=== PATIENT | female | born 1955 | race Caucasian/White ===

== ENCOUNTER 2018-11-11 05:13 | Inpatient (IN) | payer BC ==
[~2018-11-11] VITALS: Ht 165.1 cm; Wt 59.6 kg
[2018-11-11] VITALS (33 sets, daily range): BP systolic 84–131; BP diastolic 44–75; PULSE 83–122; RESP 12–23; Ht 165.1 cm; Wt 59.6 kg
[~2018-11-11 05:13] MED LIST: 7-OX5POW2 MC; AMOUR PO; BIOT1TAB3 PO; FEXO60TA20 PO; MODA200T35 ORAL; PROG100C15 ORAL; TAUR500C PO; TURM1CAP2 PO; VENL150C PO; VITA1CAP5 PO; [UNRECOGNIZED DRUG - CODE] MC; [UNRECOGNIZED DRUG - CODE] PO; [UNRECOGNIZED DRUG - CODE] PO
[2018-11-11] MEDS ORDERED: VANCOMYCIN 1 GM (PMX) 250 ML IVPB ONE (06:00)
[2018-11-11] MEDS ORDERED: LACTATED RINGER'S 1,000 ML IV SCH (06:30)
--- NOTE | 2018-11-11 06:38 | PREAC ---
Date/Time of Note Date/Time of Note DATE: 11/11/18 TIME: 06:38 Anesthesia Eval and Record Evaluation Time Pre-Procedure Interview DATE: 11/11/18 TIME: 06:38 Age 63 Sex female NPO: 8 hrs Preoperative diagnosis lumbar ddd Planned procedure L3-5 laminectomy Past Medical History Past Medical History: Includes Endo: Hypothyroid Surgery & Anesthesia Issues No known issue Meds Anticoagulation: No Beta Brando within 24 hr: No Reason Beta Brando not given: Pt. not on B-Brando Current Medications Vancomycin HCl 250 ml @ 125 mls/hr ONCE ONCE IVPB Last administered on 11/11/18at 06:28; Admin Dose 125 MLS/HR; Start 11/11/18 at 06:00; Stop 11/11/18 at 07:59 Lactated Ringer's 1,000 ml @ 30 mls/hr Q24H IV Last administered on 11/11/18at 06:28; Admin Dose 30 MLS/HR; Start 11/11/18 at 06:30 Meds reviewed: Yes Allergies Coded Allergies: Penicillins (Verified Allergy, Severe, 11/11/18) adhesive tape (Verified Allergy, Severe, 11/11/18) bupropion (Verified Allergy, Intermediate, 11/11/18) Allergies Reviewed: Yes Labs/Studies Labs Reviewed: Reviewed by anesthesiologist Blood Bank Test 11/11/18 05:52 Blood Product Summary Counts test: Negative Pre-procedure Exam Airway: Adequate mouth opening, Adequate thyromental dist Mallampati: Mallampati II Teeth: Normal Lung: Normal Heart: Normal ASA Physical Status ASA physical status: 2 Emergency: None Planned Anesthetic General/MAC: ETT Pre-operative Attestations Prior to commencing anesthesia and surgery, the patient was re-evaluated, there was verification of: *The patient's identity *The results of appropriate recent lab work and preoperative vital signs *The above evaluation not changing prior to induction *Anesthetic plan, risk benefits, alternative and complications discussed with patient/family; questions answered; patient/family understands, accepts and wishes to proceed. LORI GILBERT Nov 11, 2018 06:38
[2018-11-11] MEDS ORDERED: FENTAnyl 50 MCG/ML VIAL ONE ×2 (06:49→10:37)
--- NOTE | 2018-11-11 06:52 | HPN ---
Date/Time of Note Date/Time of Note DATE: 11/11/18 TIME: 06:51 Interval H&P Admission Note Pt. seen H&P reviewed: No system changes POP RODRIGUEZ MD Nov 11, 2018 06:52
[2018-11-11] MEDS ORDERED: ROCURONIUM 50 MG INJ ONE (06:59)
[2018-11-11] MEDS ORDERED: ONDANSETRON 4 MG INJ ONE ×2 (06:59→07:28)
[2018-11-11] MEDS ORDERED: SUCCINYLCHOLINE CHLORIDE 100 MG/5 ML SYG IV ONE (06:59)
[2018-11-11] MEDS ORDERED: METOCLOPRAMIDE 10 MG INJ ONE (06:59)
[2018-11-11] MEDS ORDERED: PROPOFOL 20 ML ONE (06:59)
[2018-11-11] MEDS ORDERED: DEXAMETHASONE 4 MG/ML 5 ML INJ ONE (06:59)
[2018-11-11] MEDS ORDERED: LIDOCAINE 100 MG SYRINGE ONE (06:59)
[2018-11-11] MEDS ORDERED: POLYMYXIN/BACITRACIN 1L IRRIG ONE (07:09)
[2018-11-11] MEDS ORDERED: THROMBIN 5000 UNIT (RECOTHROM) VIAL ONE (07:09)
[2018-11-11] MEDS ORDERED: BUPIVACAINE 0.25% (MPF) 30 ML INJ ONE (07:09)
[2018-11-11] MEDS ORDERED: GELATIN SIZE 100 SPONGE ONE (07:10)
[2018-11-11] MEDS ORDERED: SUGAMMADEX SODIUM 200 MG/2 ML VIAL IV ONE (09:49)
[2018-11-11] MEDS ORDERED: TRIMETHOBENZAMIDE 100 MG/ML VIAL IM PRN (10:30)
[2018-11-11] MEDS ORDERED: ONDANSETRON 4 MG INJ IV PRN ×2 (10:30→11:00)
[2018-11-11] MEDS ORDERED: NALOXONE (0.4 MG/ML) INJ IV PRN (10:30)
[2018-11-11] MEDS ORDERED: NACL 0.9% 3 ML SYG IV SCH (10:30)
[2018-11-11] MEDS ORDERED: ZOLPIDEM 5 MG TAB PO PRN (10:30)
[2018-11-11] MEDS ORDERED: AL HYDROX/MG HYDROX/SIMETH 30 ML CUP PO PRN (10:30)
[2018-11-11] MEDS ORDERED: DIAZEPAM 5 MG TAB PO PRN (10:30)
[2018-11-11] MEDS ORDERED: HYDROmorphONE 0.2 MG/ML PCA IV SCH (10:30)
[2018-11-11] MEDS ORDERED: DIAZEPAM 5 MG/ML SYG IM PRN (10:30)
[2018-11-11] MEDS ORDERED: BETHANECHOL 25 MG TAB PO PRN (10:30)
[2018-11-11] MEDS ORDERED: ACETAMINOPHEN 325 MG TAB PO PRN (10:30)
[2018-11-11] MEDS ORDERED: CEPASTAT LOZENGE MT PRN (10:30)
[2018-11-11] MEDS ORDERED: PROCHLORPERAZINE 10 MG TAB PO PRN (10:30)
[2018-11-11] MEDS ORDERED: HYDROmorphONE 1 MG/5 ML IV SYRINGE IV ONE (10:37)
[2018-11-11] MEDS ORDERED: HYDROmorphONE 0.2 MG/ML PCA ONE (10:44)
--- NOTE | 2018-11-11 10:46 | SIPON ---
Date/Time of Note Date/Time of Note DATE: 11/11/18 TIME: 10:39 Operative Report Preoperative Diagnosis Spinal Stenosis L4 and L5 HNP L5-S1 right Postoperative Diagnosis Same Operation/Procedure Performed Central decompressive laminectomy at L4 Central decompressive laminectomy at L5 Microdiscectomy L5-S1 on the right Medial facetectomy and foraminotomy L4-5 and L5-S1 bilaterally Baxano trans-pedicular foraminal decompression L5 on the right Cosmetic wound closure (6 cm) Lateral localizing lumbar radiographs (2) Intraoperative nerve monitoring (3 hours) Surgeon see signature line bacteriology research assistant BRENDA Maza Anesthesia: general Estimated blood loss: 250 - 300 ml's Transfusion Required none Specimen Herniated disc L5-S1 on the right Spinous process of L4 and L5 Grafts/Implants none Complications none POP RODRIGUEZ MD Nov 11, 2018 10:46
[2018-11-11] MEDS ORDERED: HYDROmorphONE 1 MG/5 ML IV SYRINGE IV PRN ×2 (11:00)
[2018-11-11] MEDS ORDERED: FENTAnyl 50 MCG/ML VIAL IV PRN ×2 (11:00)
[2018-11-11] MEDS ORDERED: PHENYLephrine (100 MCG/ML) 10ML SYG ONE (11:41)
--- NOTE | 2018-11-11 13:16 | OPR ---
DATE OF OPERATION: 11/11/2018 PREOPERATIVE DIAGNOSES: 1. Lumbar spinal stenosis at L4. 2. Lumbar spinal stenosis at L5. 3. Herniated disk, L5-S1 on the right with extruded fragments. POSTOPERATIVE DIAGNOSES: 1. Lumbar spinal stenosis at L4. 2. Lumbar spinal stenosis at L5. 3. Herniated disk, L5-S1 on the right with extruded fragments. OPERATION PERFORMED: 1. Central decompressive laminectomy at L4. 2. Central decompressive laminectomy at L5. 3. Microdiskectomy, L5-S1 on the right. 4. Baxano transpedicular foraminal decompression L5 on the right. 5. Medial facetectomy and foraminotomy, L4-L5 and L5-S1 bilaterally. 6. Cosmetic wound closure (6 cm). 7. Lateral localized lumbar radiographs (2) 8. Intraoperative nerve monitoring (3 hours). SURGEON: Mani Patricio MD EGG TESTER: BRENDA Maza ANESTHESIA: General endotracheal. ANESTHESIOLOGIST: Crow Tran MD ESTIMATED BLOOD LOSS: 300 mL, none replaced. DRAINS: Two medium Hemovac drains employed. COMPLICATIONS: None. PERTINENT HISTORY AND PHYSICAL: This is a 63-year-old female with severe back and bilateral leg pain , left greater than right, which have been unrelieved by extensive conservative management. She has undergone a number of diagnostic studies including an MRI of the lumbar spine, which demonstrated lum bar spinal stenosis at L4 and L5 with a right-sided disk extrusion at L5-S1. Treatment options discu ssed with the patient, she elected to proceed with surgery. OPERATIVE FINDINGS AT SURGERY: Severe stenosis at L4, moderate stenosis at L5 and a moderate paracen tral herniation of the L5-S1 disk was confirmed along with marked foraminal stenosis at L5-S1 on the right. Baseline intraoperative nerve monitoring revealed a decrease in the L4 potential on the left of 30%, the L4 potential on the right, 40%, the L5 potential on the left of 30%, the L5 potential on the right down 50%, the S1 potentials were down 50% bilaterally. These all returned to normal at the completion of surgery. OPERATIVE PROCEDURE: With the patient in supine position after satisfactory induction of general end otracheal anesthesia by Dr. Tran, the patient was turned to the prone kneeling position over the [place] frame. All pressure points were carefully padded. The back was prepped and draped in usua l sterile fashion. Athrombic pumps were applied to the legs below the knees to prevent venous stasis during and after procedure. An indwelling Hearn catheter was also placed preoperative to facilitate bladder drainage during and after procedure. Two spinal needles placed next to what was felt to be the L4 and L5 spinous processes, this was confirmed with lateral x-ray. A 6 cm incision then carried midline from L4 to the sacrum through skin and subcutaneous tissue to de ep fascia after skin was infiltrated with 0.25% Marcaine without epinephrine for postoperative analge justice. Superficial retractors were placed and hemostasis secured with electrocautery. Throughout the procedure, copious amounts of antibacterial irrigating solution used to periodically irrigate the wou nd. The fascia was incised in midline with a hot knife and a bilateral subperiosteal dissection aleman ied out at L4 and L5. Deep retractors were placed and deep hemostasis secured with electrocautery. A second intraoperative radiograph was taken with what was felt to be Tai clamps on the spinous pr ocess of L4 and L5. This was confirmed with second x-ray. A central decompressive laminectomy at L5 and L4 was then carried out using a Elmer right-angle bone rongeur, Leksell rongeur, Kerrison punc hes and curettes. Ligamentum flavum was excised with sharp dissection. The operating microscope was then moved into place. A medial facetectomy and foraminotomy was accomplished using small hand oste otome, mallet, Kerrison punches and curettes at L4-L5 and L5-S1 bilaterally. The S1 root was then mo bilized medially and protected with Milo 'Analyico nerve retractor using microdissection technique. This revealed a herniation of the L5-S1 disk on the right. A 15 blade knife used to cut a rectangular win julio in the annulus and posterior longitudinal ligament and multiple degenerative disk fragments were harvested with pituitary rongeurs and sent to laboratory for pathologic study. Additional fragments were harvested using Laura curettes. A thorough search of the floor canal was made with an arthros copic probe. No additional fragments were encountered. The epidural hemostasis was secured with bip olar electrocautery on low setting. The anesthesiologist was then asked to perform a Valsalva maneuver at 40 mmHg and no spinal fluid was noted. At this point, there was still some distal foraminal stenosis at L5-S1 on the right, and the Baxano instrumentation was brought onto the field. The Ipsi probe was placed into the right L5 fora men, and guidewire passed in the usual fashion. The neuro probe was then used to isolate the exiting L5 nerve root. With this having been accomplished, a 7.5 mm Baxano rasp was then inserted into the foramen and multiple reciprocating motions were used to remove bone from the undersurface of the pedi dash and the facet joint and to enlarge the foramen. This was done with multiple reciprocations at wh ich point, the instrumentation was withdrawn. The foramen was flooded with 20 mL of irrigating solut ion. The anesthesiologist was asked to perform a second Valsalva maneuver at 40 mmHg and no spinal f luid was noted. The wound was then closed in layers over 2 medium Hemovac drains, one below the fascia, one above the fascia using #1 Stratafix sutures in deep parallel musculature and deep fascia of the back, 2-0 Str atafix sutures subq tissue, and a 4-0 Vicryl subcuticular cosmetic closing suture on the skin. Astatula mcgraw and sterile compressive dressings were applied. The patient having tolerated procedure well, wa s then turned to the supine position onto her bed and extubated by Dr. Tran. She was transporte d to the recovery room in satisfactory condition. At the conclusion of procedure, sponge, instrument , and needle counts were all correct. NEED FOR FIELD INVESTIGATOR: During this spinal surgical procedure, my shop assistant was used to retract and protect the spinal nerves and dural sac. My shop assistant also employed the suction catheters to bev luigi blood from the surgical field to improve visualization of the neural structures. The shop assistant was medically necessary to facilitate the completion of the surgery in a safe and expeditious manner. State of [place] regulations, as well as hospital bylaws, preclude the use of non-licensed health care personnel such as operating room technicians, to perform these functions. Throughout the procedure, neural monitoring was carried out by [employer] including EMG, SSEP a nd MEP monitoring of the L3, L4, L5 and S1 nerve roots bilaterally along with spinal cord potentials. These were interpreted in real time by Dr. Ricky Ruiz. Dictated By: MANI CHAPARRO/RISHABH Conf#: [id number] DID#: [id number] CC: JHONY GOLDMAN MD;*EndCC*
--- NOTE | 2018-11-11 14:43 | CONS ---
Assessment/Plan Assessment/Plan Problems: (1) Allergic rhinitis Status: Chronic Comment: Cont. daily antihistamine (2) Major depressive disorder, recurrent, in full remission Status: Chronic Comment: Cont. venlafaxine and modafanil (3) Anxiety disorder Status: Chronic Comment: Cont. venlafaxine and modafanil (4) Hypothyroidism Status: Chronic Comment: Cont. armour thyroid 30 mg bid (5) Lumbar spinal stenosis Status: Resolved Comment: Per primary team (6) Status post lumbar laminectomy Status: Acute Comment: Doing well POD#0. Pain control and PT per primary team. Will monitor for any medical issues and treat should they arise. Consultation Date/Type/Reason Admit Date/Time Nov 11, 2018 at 05:13 Date of Consultation: Nov 11, 2018 Type of Consult Medicine Reason for Consultation medical management Requesting Provider: POP RODRIGUEZ MD Date/Time of Note DATE: 11/11/18 TIME: 14:37 Hx of Present Illness 63 y/o C F w/ h/o hypothyroidism, anxiety, and depression in [facility] until 10 y. ago when she developed back pains w/ radiation down legs. Had a series of epidurals and these resolved. However, recurred 2 y. ago w/ progressive worsening of sciatica until pt. could no longer tolerate it. Self-referred to Dr. Rodriguez who scheduled pt. for lumbar lami w/ microdiskectomy today. Now POD#0 and doing well. Constitutional: no complaints, improved Eyes: no complaints ENT: no complaints Respiratory: no complaints Cardiovascular: no complaints Gastrointestinal: no complaints Genitourinary: no complaints Musculoskeletal: back pain Neurologic: other (numbness on backs of legs) Past Medical History Medical History: hypothyroid, other (depression, anxiety) Home Meds Reported Medications Lecithin (Lecithin) 1,200 Mg Capsule, 1200 MG PO DAILY, CAP 11/11/18 Biotin/Calcium Carbonate (Biotin 800 Mcg Tablet) 1 Each Tablet, 1 CAP PO DAILY, TAB 11/11/18 Magnesium Glycinate (Magnesium Glycinate) 2,500 Gm Powder, 240 MG MC QHS 11/11/18 7-Oxodehydroepiandrosterone,Mc (7-Keto Dhea) 5 Gm Powder, 50 MG MC DAILY 11/11/18 Daisetta-3/Dha/Epa/Fish Oil (Epa-Dha 720 Softgel) 1 Each Capsule, 1 CAP PO DAILY, CAP 11/11/18 Taurine (Taurine) 500 Mg Capsule, 500 MG PO DAILY, CAP 11/11/18 Turmeric/Turmeric Root Extract (Turmeric 500 mg Capsule) 1 Each Capsule, 1 CAP PO DAILY, CAP 11/11/18 Vitamin B Complex & Vit C No.3 (B Complex with Vitamin C) 1 Each Capsule, 1 TAB PO DAILY, CAP 11/11/18 Fexofenadine Hcl* (Mame*) 60 Mg Tablet, 60 MG PO BID, #120 TAB 11/11/18 Modafinil* (Modafinil*) 200 Mg Tablet, 100 MG ORAL QAM 11/11/18 Progesterone,Micronized* (Prometrium*) 100 Mg Capsule, 1 CAP ORAL QHS 11/11/18 [Amour] No Conflict Check, 0.5 GM PO BID TAKE 1/2 AM AND PM 11/11/18 Venlafaxine Hcl* (Effexor XR*) 150 Mg Cap.sr.24h, 150 MG PO DAILY, CAP 11/11/18 Medications Current Medications Lactated Ringer's 1,000 ml @ 30 mls/hr Q24H IV Last administered on 11/11/18at 06:28; Admin Dose 30 MLS/HR; Start 11/11/18 at 06:30 Dextrose/Sodium Chloride 1,000 ml @ 100 mls/hr Q10H IV ; Start 11/11/18 at 10:30 Acetaminophen/ Hydrocodone Bitart ([place] (5/325)) 1 tab Q4H PRN PO .PAIN 1-5; Start 11/11/18 at 10:30 Acetaminophen/ Hydrocodone Bitart ([place] (5/325)) 2 tab Q4H PRN PO .PAIN 6-10; Start 11/11/18 at 10:30 Vancomycin/Sodium Chloride 250 ml @ 125 mls/hr Q12H IVPB ; Start 11/11/18 at 18:00; Stop 11/12/18 at 07:59 Zolpidem Tartrate (Ambien) 5 mg HS PRN PO .INSOMNIA; Start 11/11/18 at 10:30 Prochlorperazine (Compazine) 10 mg Q4H PRN PO NAUSEA/VOMITING; Start 11/11/18 at 10:30 Trimethobenzamide HCl (Tigan) 200 mg Q4H PRN IM NAUSEA/VOMITING; Start 11/11/18 at 10:30 Ondansetron HCl (Zofran Inj) 4 mg Q6H PRN IV NAUSEA/VOMITING; Start 11/11/18 at 10:30 Al Hydrox/Mg Hydrox/Simethicone (Mag-Al Plus) 15 ml Q4H PRN PO .CONSTIPATION; Start 11/11/18 at 10:30 Docusate Sodium (Colace) 100 mg BID PO ; Start 11/12/18 at 09:00 Acetaminophen (Tylenol Tab) 650 mg Q4H PRN PO TEMP GREATER THAN 101F OR RAMSAY; Start 11/11/18 at 10:30 Ascorbic Acid (Vitamin C) 1,000 mg BID PO ; Start 11/12/18 at 09:00 Ferrous Sulfate (Ferrous Sulfate (Ec)) 325 mg TID PO ; Start 11/12/18 at 09:00 Ranitidine HCl (Zantac) 150 mg BID PO ; Start 11/11/18 at 21:00 Diazepam (Valium) 5 mg Q4H PRN PO .MUSCLE SPASM; Start 11/11/18 at 10:30 Diazepam (Valium) 5 mg Q4H PRN IM .MUSCLE SPASM; Start 11/11/18 at 10:30 Phenol (Cepastat Lozenge) 1 lozenge PRN PRN MT .SORE THROAT; Start 11/11/18 at 10:30 Bethanechol Chloride (Urecholine) 25 mg PRN PRN PO .UNABLE TO VOID; Start 11/11/18 at 10:30 Diphenhydramine HCl (Benadryl) 50 mg Q6H PRN PO .PRURITUS; Start 11/11/18 at 10:30 IV Flush (NS 3 ml) 3 ml PER PROTOCOL IV ; Start 11/11/18 at 10:30 Hydromorphone HCl (Dilaudid GUIDE SETTER) Q4PCA IV Last administered on 11/11/18at 10:59; Admin Dose 6 MG; Start 11/11/18 at 10:30 Naloxone HCl (Narcan) 0.2 mg Q2M PRN IV RR 8 BREATHS/MIN OR LESS; Start 11/11/18 at 10:30 Hydromorphone HCl (Dilaudid) 0.2 mg PACU PRN IV MILD PAIN 1-3; Start 11/11/18 at 11:00; Stop 11/11/18 at 18:00 Hydromorphone HCl (Dilaudid) 0.4 mg PACU PRN IV MOD PAIN 4-6 Last administered on 11/11/18at 10:55; Admin Dose 0.4 MG; Start 11/11/18 at 11:00; Stop 11/11/18 at 18:00 Fentanyl (Sublimaze) 25 mcg PACU ORDER PRN IV MILD PAIN 1-3; Start 11/11/18 at 11:00; Stop 11/11/18 at 18:00 Fentanyl (Sublimaze) 50 mcg PACU ORDER PRN IV MOD PAIN 4-6 Last administered on 11/11/18at 10:55; Admin Dose 50 MCG; Start 11/11/18 at 11:00; Stop 11/11/18 at 18:00 Ondansetron HCl (Zofran Inj) 4 mg PACU ORDER PRN IV NAUSEA/VOMITING Last administered on 11/11/18at 11:26; Admin Dose 4 MG; Start 11/11/18 at 11:00; Stop 11/11/18 at 18:00 Modafinil (Provigil) 100 mg QAM PO ; Start 11/12/18 at 09:00; Status UNV Progesterone (Prometrium) 100 mg QHS PO ; Start 11/11/18 at 21:00 Venlafaxine HCl (Effexor Xr) 150 mg DAILY PO ; Start 11/12/18 at 09:00; Status UNV Loratadine (Claritin) 10 mg DAILY PO ; Start 11/12/18 at 09:00; Status UNV Allergies: Coded Allergies: Penicillins (Verified Allergy, Severe, 11/11/18) adhesive tape (Verified Allergy, Severe, 11/11/18) bupropion (Verified Allergy, Intermediate, 11/11/18) Past Surgical History Past Surgical Hx: appendectomy, other (tonsillectomy, breast augmentation, hallux valgus reduction, bladder sling) Family History Significant Family History: diabetes, other (hypothyroidism, OA of spine) Social History b. [employer], [employer] grad, , 2 children, works rescuing kittens Alcohol Use: none Smoking Status: Never smoker Drug Use: marijuana (occasional use) Exam/Review of Systems Exam Vitals VS - Last 72 Hours, by Label Date Temp Pulse Resp B/P (MAP) Pulse Ox O2 O2 Flow FiO2 Time Delivery Rate 11/11/18 18 13:00 11/11/18 98.2 104 16 105/63 100 Nasal 12:51 (77) Cannula 11/11/18 114 20 96/51 (66) 100 Nasal 12:18 Cannula 11/11/18 108 20 94/52 (66) 100 Nasal 12:13 Cannula 11/11/18 100 14 95/55 (68) 100 Nasal 12:08 Cannula 11/11/18 116 21 131/75 100 Nasal 12:05 (93) Cannula 11/11/18 112 19 94/51 (65) 100 Nasal 12:03 Cannula 11/11/18 110 15 96/51 (66) 100 Nasal 11:58 Cannula 11/11/18 112 14 94/54 (67) 100 Nasal 11:53 Cannula 11/11/18 102 15 98/53 (68) 100 Nasal 11:48 Cannula 11/11/18 120 23 93/47 (62) 100 Nasal 11:43 Cannula 11/11/18 118 19 91/49 (63) 100 Nasal 11:38 Cannula 11/11/18 118 18 96/48 (64) 99 Nasal 11:33 Cannula 11/11/18 122 12 91/53 (66) 99 Nasal 11:28 Cannula 11/11/18 118 14 92/44 (60) 100 Nasal 11:23 Cannula 11/11/18 116 15 92/47 (62) 100 Nasal 11:18 Cannula 11/11/18 112 14 90/52 (65) 100 Nasal 11:13 Cannula 11/11/18 106 14 99/55 (70) 100 Nasal 11:08 Cannula 11/11/18 Nasal 2.0 11:07 Cannula 11/11/18 112 14 96/49 (65) 100 Nasal 11:03 Cannula 11/11/18 15 11:03 11/11/18 114 15 93/53 (66) 100 Nasal 10:58 Cannula 11/11/18 116 12 93/46 (62) 100 Nasal 10:53 Cannula 11/11/18 103 22 91/54 (66) 100 Nasal 10:48 Cannula 11/11/18 110 17 95/48 (64) 100 Nasal 10:43 Cannula 11/11/18 114 20 96/49 (65) 100 Nasal 10:38 Cannula 11/11/18 116 16 91/46 (61) 100 Mask 10:33 11/11/18 98.4 110 17 93/47 (62) 100 Mask 10:28 11/11/18 98.4 10:23 11/11/18 97.6 83 18 103/68 100 06:36 (80) Vital Signs Date Temp Pulse Resp B/P (MAP) Pulse Ox O2 O2 Flow FiO2 Time Delivery Rate 11/11/18 18 13:00 11/11/18 98.2 104 105/63 100 Nasal 12:51 (77) Cannula 11/11/18 2.0 11:07 Constitutional: alert, oriented, well developed Psych: no complaints, nl mood/affect Eyes: nl conjunctiva, EOMI, nl lids, nl sclera, PERRL ENMT: nl external ears & nose, mucosa pink and moist Neck: supple, non-tender; No bruits, No masses, No thyromegaly Respiratory: clear to auscultation, normal air movement Cardiovascular: regular rate and rhythm, nl pulses; No edema, No murmurs/extra sounds, No rub Gastrointestinal: soft, nl liver, spleen, non-tender, bowel sounds; No mass, No rebound or guarding Musculoskeletal: nl extremities to inspection Extremities: normal pulses; No cyanosis, No clubbing, No edema Neurological: PARTITION ASSEMBLER II-XII intact, nl mental status, nl speech, nl strength Medications Medication Current Medications Lactated Ringer's 1,000 ml @ 30 mls/hr Q24H IV Last administered on 11/11/18at 06:28; Admin Dose 30 MLS/HR; Start 11/11/18 at 06:30 Dextrose/Sodium Chloride 1,000 ml @ 100 mls/hr Q10H IV ; Start 11/11/18 at 10:30 Acetaminophen/ Hydrocodone Bitart ([place] (5/325)) 1 tab Q4H PRN PO .PAIN 1-5; Start 11/11/18 at 10:30 Acetaminophen/ Hydrocodone Bitart ([place] (5/325)) 2 tab Q4H PRN PO .PAIN 6-10; Start 11/11/18 at 10:30 Vancomycin/Sodium Chloride 250 ml @ 125 mls/hr Q12H IVPB ; Start 11/11/18 at 1 8:00; Stop 11/12/18 at 07:59 Zolpidem Tartrate (Ambien) 5 mg HS PRN PO .INSOMNIA; Start 11/11/18 at 10:30 Prochlorperazine (Compazine) 10 mg Q4H PRN PO NAUSEA/VOMITING; Start 11/11/18 at 10:30 Trimethobenzamide HCl (Tigan) 200 mg Q4H PRN IM NAUSEA/VOMITING; Start 11/11/18 at 10:30 Ondansetron HCl (Zofran Inj) 4 mg Q6H PRN IV NAUSEA/VOMITING; Start 11/11/18 at 10:30 Al Hydrox/Mg Hydrox/Simethicone (Mag-Al Plus) 15 ml Q4H PRN PO .CONSTIPATION; Start 11/11/18 at 10:30 Docusate Sodium (Colace) 100 mg BID PO ; Start 11/12/18 at 09:00 Acetaminophen (Tylenol Tab) 650 mg Q4H PRN PO TEMP GREATER THAN 101F OR RAMSAY; Start 11/11/18 at 10:30 Ascorbic Acid (Vitamin C) 1,000 mg BID PO ; Start 11/12/18 at 09:00 Ferrous Sulfate (Ferrous Sulfate (Ec)) 325 mg TID PO ; Start 11/12/18 at 09:00 Ranitidine HCl (Zantac) 150 mg BID PO ; Start 11/11/18 at 21:00 Diazepam (Valium) 5 mg Q4H PRN PO .MUSCLE SPASM; Start 11/11/18 at 10:30 Diazepam (Valium) 5 mg Q4H PRN IM .MUSCLE SPASM; Start 11/11/18 at 10:30 Phenol (Cepastat Lozenge) 1 lozenge PRN PRN MT .SORE THROAT; Start 11/11/18 at 10:30 Bethanechol Chloride (Urecholine) 25 mg PRN PRN PO .UNABLE TO VOID; Start 11/11/18 at 10:30 Diphenhydramine HCl (Benadryl) 50 mg Q6H PRN PO .PRURITUS; Start 11/11/18 at 10:30 IV Flush (NS 3 ml) 3 ml PER PROTOCOL IV ; Start 11/11/18 at 10:30 Hydromorphone HCl (Dilaudid GUIDE SETTER) Q4PCA IV Last administered on 11/11/18at 10:59; Admin Dose 6 MG; Start 11/11/18 at 10:30 Naloxone HCl (Narcan) 0.2 mg Q2M PRN IV RR 8 BREATHS/MIN OR LESS; Start 11/11/18 at 10:30 Hydromorphone HCl (Dilaudid) 0.2 mg PACU PRN IV MILD PAIN 1-3; Start 11/11/18 at 11:00; Stop 11/11/18 at 18:00 Hydromorphone HCl (Dilaudid) 0.4 mg PACU PRN IV MOD PAIN 4-6 Last administered on 11/11/18at 10:55; Admin Dose 0.4 MG; Start 11/11/18 at 11:00; Stop 11/11/18 at 18:00 Fentanyl (Sublimaze) 25 mcg PACU ORDER PRN IV MILD PAIN 1-3; Start 11/11/18 at 11:00; Stop 11/11/18 at 18:00 Fentanyl (Sublimaze) 50 mcg PACU ORDER PRN IV MOD PAIN 4-6 Last administered on 11/11/18at 10:55; Admin Dose 50 MCG; Start 11/11/18 at 11:00; Stop 11/11/18 at 18:00 Ondansetron HCl (Zofran Inj) 4 mg PACU ORDER PRN IV NAUSEA/VOMITING Last administered on 11/11/18at 11:26; Admin Dose 4 MG; Start 11/11/18 at 11:00; Stop 11/11/18 at 18:00 Modafinil (Provigil) 100 mg QAM PO ; Start 11/12/18 at 09:00; Status UNV Progesterone (Prometrium) 100 mg QHS PO ; Start 11/11/18 at 21:00 Venlafaxine HCl (Effexor Xr) 150 mg DAILY PO ; Start 11/12/18 at 09:00; Status UNV Loratadine (Claritin) 10 mg DAILY PO ; Start 11/12/18 at 09:00; Status UNV JHONY GOLDMAN MD Nov 11, 2018 14:43
[2018-11-11] MEDS: DIPHENHYDRAMINE 50 MG CAP PO PRN (15:28)
[2018-11-11] MEDS: DEXTROSE 5%-0.45% NACL 1,000 ML IV SCH ×2 (16:03→20:30)
[2018-11-11] MEDS: VANCOMYCIN 750 MG (PMX) 250 ML IVPB SCH (18:21)
[2018-11-11] MEDS: THYROID 30 MG TAB PO SCH (21:34)
[2018-11-11] MEDS: PROGESTERONE 100 MG CAP PO SCH (21:35)
[2018-11-11] MEDS: RANITIDINE 150 MG TAB PO SCH (21:35)
[2018-11-12] VITALS (7 sets, daily range): BP systolic 83–98; BP diastolic 50–56; PULSE 90–99; RESP 18–20
[2018-11-12] MEDS: DEXTROSE 5%-0.45% NACL 1,000 ML IV SCH ×2 (04:50→16:30)
[2018-11-12] MEDS: VANCOMYCIN 750 MG (PMX) 250 ML IVPB SCH (05:40)
--- NOTE | 2018-11-12 06:54 | PN ---
Date/Time of Note Date/Time of Note DATE: 11/12/18 TIME: 06:51 Assessment/Plan Lines/Catheters IV Catheter Type (from Nrs): Peripheral IV Hearn in Place (from Nrsg): Yes Subjective 24 Hr Interval Summary The patient is postop day #1 following a decompressive laminectomy at L4 and L5 with microdiscectomy L5-S1 on the right. She is resting comfortably in bed. S he is afebrile. She has a mild postoperative anemia (hemoglobin 9.0). Her Hemovac has 100 cc of output since 7 PM last night. A Hearn catheter is in place. Neurovascular structures are intact distally. She will be mobilized as tolerated by physical therapy. I will check on her Hemovac output later today. Her Hearn catheter will be discontinued. Exam/Review of Systems Vital Signs Vitals Vital Signs Date Temp Pulse Resp B/P (MAP) Pulse Ox O2 O2 Flow FiO2 Time Delivery Rate 11/12/18 98.2 20 90/52 (65) 98 Nasal 04:54 Cannula 11/12/18 94 1.0 03:53 Intake and Output 11/11/18 11/11/18 11/12/18 1515:00 23:00 07:00 IntakeIntake Total 1900 ml 1020 ml 1210 ml OutputOutput Total 340 ml 500 ml 1550 ml BalanceBalance 1560 ml 520 ml -340 ml Results Result Diagram: 11/12/18 0445 11/12/18 0445 POP RODRIGUEZ MD Nov 12, 2018 06:54
--- NOTE | 2018-11-12 07:30 | PAC ---
Date/Time of Note Date/Time of Note DATE: 11/12/18 TIME: 07:30 Post-Anesthesia Notes Post-Anesthesia Note Last documented vital signs Vital Signs Date Temp Pulse Resp B/P (MAP) Pulse Ox O2 O2 Flow FiO2 Time Delivery Rate 11/12/18 98.2 20 90/52 (65) 98 Nasal 04:54 Cannula 11/12/18 94 1.0 03:53 Activity: WNL Respiratory function: WNL Cardiovascular function: WNL Mental status: Baseline Pain reasonably controlled: Yes Hydration appropriate: Yes Nausea/Vomiting absent: Yes LORI GILBERT Nov 12, 2018 07:30
[2018-11-12] MEDS ORDERED: BETHANECHOL 25 MG TAB PO PRN (08:00)
[2018-11-12] MEDS: DIPHENHYDRAMINE 50 MG CAP PO PRN (10:03)
[2018-11-12] MEDS: ASCORBIC ACID 500 MG TAB PO SCH ×2 (10:03→20:23)
[2018-11-12] MEDS: RANITIDINE 150 MG TAB PO SCH ×2 (10:03→20:23)
[2018-11-12] MEDS: DOCUSATE SODIUM 100 MG CAP PO SCH ×2 (10:03→20:22)
[2018-11-12] MEDS: FERROUS SULFATE (EC) 325 MG TAB PO SCH ×3 (10:03→20:22)
[2018-11-12] MEDS: VENLAFAXINE (XR) 75 MG CAP PO SCH (10:05)
[2018-11-12] MEDS: LORATADINE 10 MG TAB PO SCH (10:05)
[2018-11-12] MEDS: THYROID 30 MG TAB PO SCH ×2 (10:10→20:22)
[2018-11-12] MEDS: HYDROCODONE/APAP (5/325) TAB PO PRN ×3 (11:39→20:19)
[2018-11-12] MEDS: MODAFINIL 200 MG TAB PO SCH (13:29)
--- NOTE | 2018-11-12 17:59 | CONS ---
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 reports that following these results [place] thyroid dose already reduced. Cont. current dosage. (2) Hypothyroidism Status: Chronic Comment: Cont. current dose of [place] as noted above (3) Allergic rhinitis Status: Chronic Comment: Cont. antihistamine (4) Major depressive disorder, recurrent, in full remission Status: Chronic Comment: Cont. venlafaxine and modafanil (5) Anxiety disorder Status: Chronic Comment: Cont. venlafaxine and modafanil (6) Postoperative anemia due to acute blood loss Status: Acute Comment: Hgb 9.0. Not severe enough as to require transfusion. FeSO4 bid. (7) Lumbar spinal stenosis Status: Resolved Comment: per primary team (8) Status post lumbar laminectomy Status: Acute Comment: Doing well POD#1. Cont. PT and pain control per primary team. Will monitor for any medical issues and treat should they arise. Consultation Date/Type/Reason Admit Date/Time Nov 11, 2018 at 05:13 Initial Consult Date 11/11/18 Type of Consult Medicine Reason for Consultation Medical Management Requesting Provider: POP RODRIGUEZ MD Date/Time of Note DATE: 11/12/18 TIME: 17:53 24 HR Interval Summary Constitutional: no complaints, improved (ambulated 4 times. Did stairs 3 times. Off IV narcotics and oral pain meds work but when not on meds pain can be so bad teeth chatter and she sweats; some mild parasthesias down posterior legs and now exhausted but overall markedly improved) Detailed Summary Respiratory: no complaints Cardiovascular: no complaints Gastrointestinal: no complaints Genitourinary: no complaints Musculoskeletal: back pain Neurologic: no complaints Exam/Review of Systems Exam Vitals VS - Last 72 Hours, by Label Date Temp Pulse Resp B/P (MAP) Pulse Ox O2 O2 Flow FiO2 Time Delivery Rate 11/12/18 98.3 99 18 94/54 (67) 96 Room Air 15:39 11/12/18 98.5 90 18 97/54 (68) 94 Room Air 07:53 11/12/18 98.2 20 90/52 (65) 98 Nasal 04:54 Cannula 11/12/18 20 04:52 11/12/18 98.3 94 18 83/53 (63) 99 Nasal 1.0 03:53 Cannula 11/12/18 19 00:44 11/12/18 95/50 (65) 00:33 11/12/18 98.6 92 18 89/56 (67) 100 Room Air 2.0 00:14 Nasal Cannula 11/11/18 20 21:10 11/11/18 18 19:51 11/11/18 98.4 96 20 84/52 (63) 100 Nasal 2.0 19:39 Cannula 11/11/18 20 17:55 11/11/18 98.2 93 20 91/50 (64) 100 Nasal 15:35 Cannula 11/11/18 98.2 102 20 98/58 (71) 99 Nasal 14:35 Cannula 11/11/18 98.4 97 20 99/55 (70) 99 Nasal 14:05 Cannula 11/11/18 98.4 89 20 100/55 99 Nasal 13:35 (70) Cannula 11/11/18 98.4 94 20 89/56 (67) 99 Nasal 13:20 Cannula 11/11/18 98.4 97 20 99/55 (70) 99 Nasal 13:05 Cannula 11/11/18 18 13:00 11/11/18 98.2 104 16 105/63 100 Nasal 12:51 (77) Cannula 11/11/18 114 20 96/51 (66) 100 Nasal 12:18 Cannula 11/11/18 108 20 94/52 (66) 100 Nasal 12:13 Cannula 11/11/18 100 14 95/55 (68) 100 Nasal 12:08 Cannula 11/11/18 116 21 131/75 100 Nasal 12:05 (93) Cannula 11/11/18 112 19 94/51 (65) 100 Nasal 12:03 Cannula 11/11/18 110 15 96/51 (66) 100 Nasal 11:58 Cannula 11/11/18 112 14 94/54 (67) 100 Nasal 11:53 Cannula 11/11/18 102 15 98/53 (68) 100 Nasal 11:48 Cannula 11/11/18 120 23 93/47 (62) 100 Nasal 11:43 Cannula 11/11/18 118 19 91/49 (63) 100 Nasal 11:38 Cannula 11/11/18 118 18 96/48 (64) 99 Nasal 11:33 Cannula 11/11/18 122 12 91/53 (66) 99 Nasal 11:28 Cannula 11/11/18 118 14 92/44 (60) 100 Nasal 11:23 Cannula 11/11/18 116 15 92/47 (62) 100 Nasal 11:18 Cannula 11/11/18 112 14 90/52 (65) 100 Nasal 11:13 Cannula 11/11/18 106 14 99/55 (70) 100 Nasal 11:08 Cannula 11/11/18 Nasal 2.0 11:07 Cannula 11/11/18 112 14 96/49 (65) 100 Nasal 11:03 Cannula 11/11/18 15 11:03 11/11/18 114 15 93/53 (66) 100 Nasal 10:58 Cannula 11/11/18 116 12 93/46 (62) 100 Nasal 10:53 Cannula 11/11/18 103 22 91/54 (66) 100 Nasal 10:48 Cannula 11/11/18 110 17 95/48 (64) 100 Nasal 10:43 Cannula 11/11/18 114 20 96/49 (65) 100 Nasal 10:38 Cannula 11/11/18 116 16 91/46 (61) 100 Mask 10:33 11/11/18 98.4 110 17 93/47 (62) 100 Mask 10:28 11/11/18 98.4 10:23 11/11/18 97.6 83 18 103/68 100 06:36 (80) Vital Signs Date Temp Pulse Resp B/P (MAP) Pulse Ox O2 O2 Flow FiO2 Time Delivery Rate 11/12/18 98.3 99 18 94/54 (67) 96 Room Air 15:39 11/12/18 1.0 03:53 Intake and Output 11/11/18 11/11/18 11/12/18 1515:00 23:00 07:00 IntakeIntake Total 1900 ml 1020 ml 1210 ml OutputOutput Total 340 ml 500 ml 1550 ml BalanceBalance 1560 ml 520 ml -340 ml Constitutional: alert, oriented, well developed Psych: no complaints, nl mood/affect Respiratory: clear to auscultation, normal air movement Cardiovascular: regular rate and rhythm, nl pulses; No edema, No murmurs/extra sounds, No rub Gastrointestinal: soft, nl liver, spleen, non-tender, bowel sounds; No mass, No rebound or guarding Musculoskeletal: nl extremities to inspection Extremities: normal pulses; No cyanosis, No clubbing, No edema Neurological: LUMBER DRIVER II-XII intact, nl mental status, nl speech, nl strength Results Result Diagram: 11/12/18 0445 11/12/18 0445 Results 24hrs Laboratory Tests Test 11/12/18 04:45 11/12/18 07:16 11/12/18 10:15 Hemoglobin 9.0 L Hematocrit 28.3 L Sodium Level 139 Potassium Level 4.2 Chloride Level 108 Carbon Dioxide Level 29 Anion Gap 2 L Blood Urea Nitrogen 9 Creatinine 0.72 Est Glomerular Filtrat > 60 Rate mL/min Glucose Level 102 Calcium Level 8.4 Lab Scanned Report REFERENCE LAB Urine Color STRAW Urine Clarity SLIGHTLY CLOUDY A Urine pH 5.0 Urine Specific [place] 1.008 Urine Ketones NEGATIVE Urine Nitrite NEGATIVE Urine Bilirubin NEGATIVE Urine Urobilinogen NEGATIVE Urine Leukocyte Esterase NEGATIVE Urine Microscopic RBC 9 H Urine Microscopic WBC 3 Urine Bacteria FEW A Urine Hemoglobin 2+ H Urine Glucose NEGATIVE Urine Total Protein NEGATIVE Medications Medication Current Medications Dextrose/Sodium Chloride 1,000 ml @ 100 mls/hr Q10H IV Last administered on 11/12/18at 04:50; Admin Dose 100 MLS/HR; Start 11/11/18 at 10:30 Acetaminophen/ Hydrocodone Bitart ([place] (5/325)) 1 tab Q4H PRN PO .PAIN 1-5 Last administered on 11/12/18at 16:06; Admin Dose 1 TAB; Start 11/11/18 at 10:30 Acetaminophen/ Hydrocodone Bitart ([place] (5/325)) 2 tab Q4H PRN PO .PAIN 6-10; Start 11/11/18 at 10:30 Zolpidem Tartrate (Ambien) 5 mg HS PRN PO .INSOMNIA; Start 11/11/18 at 10:30 Prochlorperazine (Compazine) 10 mg Q4H PRN PO NAUSEA/VOMITING; Start 11/11/18 at 10:30 Trimethobenzamide HCl (Tigan) 200 mg Q4H PRN IM NAUSEA/VOMITING; Start 11/11/18 at 10:30 Ondansetron HCl (Zofran Inj) 4 mg Q6H PRN IV NAUSEA/VOMITING; Start 11/11/18 at 10:30 Al Hydrox/Mg Hydrox/Simethicone (Mag-Al Plus) 15 ml Q4H PRN PO .CONSTIPATION; Start 11/11/18 at 10:30 Docusate Sodium (Colace) 100 mg BID PO Last administered on 11/12/18at 10:03; Admin Dose 100 MG; Start 11/12/18 at 09:00 Acetaminophen (Tylenol Tab) 650 mg Q4H PRN PO TEMP GREATER THAN 101F OR RAMSAY; Start 11/11/18 at 10:30 Ascorbic Acid (Vitamin C) 1,000 mg BID PO Last administered on 11/12/18at 10:03; Admin Dose 1,000 MG; Start 11/12/18 at 09:00 Ferrous Sulfate (Ferrous Sulfate (Ec)) 325 mg TID PO Last administered on 9at 13:29; Admin Dose 325 MG; Start 11/12/18 at 09:00 Ranitidine HCl (Zantac) 150 mg BID PO Last administered on 11/12/18at 10:03; Admin Dose 150 MG; Start 11/11/18 at 21:00 Diazepam (Valium) 5 mg Q4H PRN PO .MUSCLE SPASM; Start 11/11/18 at 10:30 Diazepam (Valium) 5 mg Q4H PRN IM .MUSCLE SPASM; Start 11/11/18 at 10:30 Phenol (Cepastat Lozenge) 1 lozenge PRN PRN MT .SORE THROAT; Start 11/11/18 at 10:30 Diphenhydramine HCl (Benadryl) 50 mg Q6H PRN PO .PRURITUS Last administered on 11/12/18at 10:03; Admin Dose 50 MG; Start 11/11/18 at 10:30 IV Flush (NS 3 ml) 3 ml PER PROTOCOL IV ; Start 11/11/18 at 10:30 Hydromorphone HCl (Dilaudid CHIEF CHEMIST) Q4PCA IV Last administered on 11/11/18at 10:59; Admin Dose 6 MG; Start 11/11/18 at 10:30 Naloxone HCl (Narcan) 0.2 mg Q2M PRN IV RR 8 BREATHS/MIN OR LESS; Start 11/11/18 at 10:30 Modafinil (Provigil) 100 mg QAM PO Last administered on 11/12/18at 13:29; Admin Dose 100 MG; Start 11/12/18 at 09:00 Progesterone (Prometrium) 100 mg QHS PO Last administered on 11/11/18 21:35; Admin Dose 100 MG; Start 11/11/18 at 21:00 Venlafaxine HCl (Effexor Xr) 150 mg DAILY PO Last administered on 11/12/18 10:05; Admin Dose 150 MG; Start 11/12/18 at 09:00 Loratadine (Claritin) 10 mg DAILY PO Last administered on 11/12/18 10:05; Admin Dose 10 MG; Start 11/12/18 at 09:00 Thyroid ([place] Thyroid) 30 mg BID PO Last administered on 11/12/18 10:10; Admin Dose 30 MG; Start 11/11/18 at 21:00 Bethanechol Chloride (Urecholine) 25 mg PRN PRN PO UNABLE TO VOID Last administ ered on 11/12/18 10:03; Admin Dose 25 MG; Start 11/12/18 at 08:00 JHONY GOLDMAN MD Nov 12, 2018 17:59
[2018-11-12] MEDS: PROGESTERONE 100 MG CAP PO SCH (20:20)
[2018-11-13] MEDS: HYDROCODONE/APAP (5/325) TAB PO PRN ×4 (00:13→12:36)
[2018-11-13] MEDS: DEXTROSE 5%-0.45% NACL 1,000 ML IV SCH (02:30)
[2018-11-13 03:34] VITALS: BP 101/58; PULSE 86; RESP 18
[2018-11-13 07:51] VITALS: BP 98/54; PULSE 94; RESP 19
[2018-11-13] MEDS: DOCUSATE SODIUM 100 MG CAP PO SCH (08:49)
[2018-11-13] MEDS: VENLAFAXINE (XR) 75 MG CAP PO SCH (08:49)
[2018-11-13] MEDS: THYROID 30 MG TAB PO SCH (08:49)
[2018-11-13] MEDS: FERROUS SULFATE (EC) 325 MG TAB PO SCH ×2 (08:49→12:36)
[2018-11-13] MEDS: RANITIDINE 150 MG TAB PO SCH (08:50)
[2018-11-13] MEDS: LORATADINE 10 MG TAB PO SCH (08:50)
[2018-11-13] MEDS: MODAFINIL 200 MG TAB PO SCH (08:50)
[2018-11-13] MEDS: ASCORBIC ACID 500 MG TAB PO SCH (08:50)
--- NOTE | 2018-11-14 02:41 | DS ---
DATE OF ADMISSION: 11/11/2018 DATE OF DISCHARGE: 11/13/2018 ADMISSION AND DISCHARGE DIAGNOSES: 1. Lumbar spinal stenosis at L4 and L5. 2. Herniated disk, L5-S1 on the right with extruded fragments. OPERATION PROCEDURES: On November 11, the patient underwent the following operative procedure: 1. Central decompressive laminectomy at L4. 2. Central decompressive laminectomy at L5. 3. Microdiskectomy, L5-S1 on the right. 4. [place] transpedicular root decompression, L5 on the right. 5. Medial facetectomy and foraminotomy, L4-L5 and L5-S1 bilaterally. 6. Cosmetic wound closure (6 cm). 7. Lateral localized lumbar radiographs (2). 8. Intraoperative nerve monitoring (3 hours). PERTINENT HISTORY AND PHYSICAL: This is a 63-year-old female with severe back and bilateral leg comp laints, which have been unrelieved by conservative management. She has undergone a number of diagnos tic studies including an MRI of the lumbar spine, which demonstrated severe spinal stenosis at L4-L5 and moderate stenosis at L5-S1 associated with herniation of the L5-S1 disk on the right with extrude d fragments. Treatment options were discussed with the patient, she elected to proceed with surgery. HOSPITAL COURSE: The patient admitted on November 11, and after routine laboratory admission studies, which were essentially within normal limits ,she underwent the operative procedure described above. She tolerated the procedure well and recovered uneventfully. She was given intensive inpatient physi aminta therapy until she was independent with ambulation. She was given strict discharge precautions an d instructions made sedentary except for walking a mile a day in divided increments and take her temp erature twice daily and report any fever over 100 degrees Fahrenheit, or any chills, sweats or draina ge from her wound. She was given back instruction sheets for information. A postoperative anemia wi th hemoglobin of 8.5 was identified on November 13. She was given instruction to follow up in [facility] in 1 to 2 weeks. Dictated By: POP RODRIGUEZ MD TM/NTS Conf#: [id number] DID#: [id number] CC: JHONY GOLDMAN MD;*EndCC*
== END 2018-11-13 14:35 | disposition home or self-care (01) | DRG 519 ==
LOC: REC 05:13 → MS1 12:24
PROVIDERS: ADMIT Orthopaedic Surgery; ATTEND Orthopaedic Surgery
PROC: 0SB40ZZ Excision of Lumbosacral Disc, Open Approach (ICD-10-PCS; 2018-11-11)
PROC: 01NR0ZZ Release Sacral Nerve, Open Approach (ICD-10-PCS; 2018-11-11)
PROC: 4A11X4G Monitoring of Peripheral Nervous Electrical Activity, Intraoperative, External Approach (ICD-10-PCS; 2018-11-11)
PROC: 01NB0ZZ Release Lumbar Nerve, Open Approach (ICD-10-PCS; principal; 2018-11-11 07:00)
DX: M51.17 Intervertebral disc disorders with radiculopathy, lumbosacral region (principal); D62 Acute posthemorrhagic anemia; M48.061 Spinal stenosis, lumbar region without neurogenic claudication; E03.9 Hypothyroidism, unspecified; F41.9 Anxiety disorder, unspecified; F33.42 Major depressive disorder, recurrent, in full remission
CPT/HCPCS: 72020; 80048; 81001; 85014; 85018; 85025; 86850; 86900; 86901; 86920; 87086; 88304; 88311; 97116; 97162; 97530; J1100; J1170; J2001; J2370; J2405; J2765; J3010; J3370; J7042; J7120